=== PATIENT | male | born 1985 | race African-American/Black ===

== ENCOUNTER 2022-12-15 17:43 | Emergency (ER) | payer SELFPAY ==
[2022-12-15] MEDS ORDERED: Benzocaine 20% Topical Spray UD MUCMEM ONE (18:55)
[2022-12-15] MEDS ORDERED: Lidocaine 2% Viscous Solution 15 ML UD PO ONE (18:55)
[2022-12-15] MEDS ORDERED: Ketorolac 30 MG/ML SDV IM ONE (19:04)
== END 2022-12-15 19:28 | disposition home or self-care (01) ==
LOC: MW.ED 17:43
DX: K04.7 Periapical abscess without sinus (principal); F17.210 Nicotine dependence, cigarettes, uncomplicated
CPT/HCPCS: 96372; 99283; A9270; J1885